=== PATIENT | female | born 1960 | race Caucasian/White ===

== ENCOUNTER 2016-05-30 08:38 | Day surgery (SDC) | payer OTHER ==
[2016-05-28 11:51] VITALS: BMI 34.0
[2016-05-30] MEDS ORDERED: PROPOFOL 20 ML ONE (10:02)
[2016-05-30] MEDS ORDERED: LIDOCAINE HCL/PF 2% SDV 5ML VIAL ONE (10:02)
[2016-05-30] MEDS ORDERED: ROCURONIUM BROMIDE 50 MG/5 ML VIAL ONE (10:06)
[2016-05-30] MEDS ORDERED: MIDAZOLAM HCL 2 MG/2 ML SINGLE DOSE VIAL ONE (10:40)
[2016-05-30] MEDS ORDERED: THROMBIN (BOVINE) 5,000 UNIT VIAL TP ONE (10:42)
[2016-05-30] MEDS ORDERED: GELATIN, ABSORBABLE 100 EACH SPONGE TP ONE (10:42)
[2016-05-30] MEDS ORDERED: BUPIVACAINE HCL/PF 2.5 MG/ML - 30 ML VIAL IJ ONE (10:56)
[2016-05-30] MEDS ORDERED: BUPIVACAINE HCL/PF 0.5% (5MG/ML) 10 ML VIAL ONE (10:57)
[2016-05-30] MEDS ORDERED: PHENYLEPHRINE HCL 10 MG/1 ML SINGLE DOSE VIAL ONE (11:12)
[2016-05-30] MEDS ORDERED: ceFAZolin SODIUM 1 GM VIAL ONE (11:19)
[2016-05-30] MEDS ORDERED: PROMETHAZINE HCL 25 MG/1 ML VIAL IVPUSH PRN (11:22)
[2016-05-30] MEDS ORDERED: LIDOCAINE HCL 2% 100 MG/5 ML DISP.SYRIN ONE (11:22)
[2016-05-30] MEDS ORDERED: ONDANSETRON 4 MG/2 ML VIAL IVPUSH PRN (11:22)
[2016-05-30] MEDS ORDERED: oxyCODONE HCL 5 MG TABLET PO PRN (11:22)
[2016-05-30] MEDS ORDERED: LACTATED RINGERS SOLUTION 1,000 ML IV SCH (11:30)
[2016-05-30] MEDS ORDERED: ONDANSETRON 4 MG/2 ML VIAL ONE ×2 (11:46→12:58)
[2016-05-30] MEDS ORDERED: NEOSTIGMINE METHYLSULFATE 0.5 MG/ML - 10 ML MDV ONE (11:47)
[2016-05-30] MEDS ORDERED: GLYCOPYRROLATE 0.2 MG/1 ML VIAL ONE ×2 (11:47→11:48)
[2016-05-30] MEDS ORDERED: DEXAMETHASONE SOD PHOSPHATE 4 MG/1 ML VIAL ONE (12:58)
[2016-05-30] MEDS ORDERED: BUPIVACAINE HCL/PF 0.25% (2.5MG/ML) 10 ML VIAL IJ ONE (13:08)
[2016-05-30] MEDS ORDERED: HYDROmorphone HCL CARPU-JECT 1 MG/1 ML DISP.SYRIN IVPB PRN (13:28)
[2016-05-30] MEDS ORDERED: OXYCODONE/APAP 5/325MG COMBO TABLET PO PRN (13:28)
[2016-05-30] MEDS ORDERED: ONDANSETRON 4 MG/2 ML VIAL IVPB PRN (13:30)
--- NOTE | 2016-05-30 13:36 | OP ---
Operative Note - Note: Operative Date: 05/30/16 Pre-Operative Diagnosis: Grave Disease Operation: Total thyroidectomy Post-Operative Diagnosis: Same as Pre-op Surgeon: Marvin Bar Director Of Group Counseling Program: Kristen Cruz Anesthesiologist/LABEL PASTER: Karsten Garcia Anesthesia: General Specimens Removed: total thyroid Estimated Blood Loss (mls): 150 Drains & Tubes with Location: JOSE- anterior neck Fluid Volume Replaced (mls): 1,400 Operative Report Dictated: Yes
[2016-05-30] MEDS ORDERED: SODIUM CHLORIDE 1,000 ML IV SCH (13:45)
[2016-05-30 19:39] LABS: ALBUMIN 3.1 g/dl (3.5-5.0); ALK PHOS 167 U/L (32-92); ANION GAP 8 (8-16); BILIRUBIN,TOTAL 0.5 mg/dl (0.2-1.0); CALCIUM 8.6 mg/dl (8.4-10.2); CO2 24 mmol/L (22-28); CREATININE 0.5 mg/dl (0.6-1.3); GLUCOSE,RANDOM 201 mg/dl (74-106); SGOT/AST 23 U/L (10-42); SGPT/ALT 12 U/L (10-40); TOT PROT 6.7 g/dl (6.4-8.3)
[2016-05-31 06:29] VITALS: BP 137/64; PULSE 92; TEMP 97.7
[2016-05-31] MEDS ORDERED: LEVOTHYROXINE NA 125 MCG TABLET (FP) PO SCH (07:00)
--- NOTE | 2016-05-31 08:13 | OP ---
DATE OF OPERATION: 05/30/2016 PREOPERATIVE DIAGNOSIS: Graves disease, inability to take oral medication. PROCEDURE: Total thyroidectomy. SURGEON: Gomez Bar MD [employer]ES MANAGER: RAYMUNDO Corrigan ANESTHESIA: General endotracheal intubation. Patient is a 55-year-old admitted with inability to take thyroid medications because of allergic to the medication for hypothyroidism. Various risks and benefits were explained to the patient. The patient was brought to the operating room and intravenous antibiotic was given. General endotracheal tube was administered and the neck was extended. After the timeout, the neck incision was made to identify the platysma muscle which was opened and the midline was identified and it was opened to identify the strap muscles and lateral dissection was done initially on to the left side and to the right side. The thyroid gland was then dissected away from the strap muscles and superiorly the superior thyroid gland entire vessels were identified and thyroid gland was taken right next to the, right on the gland to avoid injury to the superior laryngeal nerve. The medial rotation of the gland was done and the middle thyroid vein was identified and suture ligated with 3-0 silk. The inferior thyroid gland was identified and rotated medially and again care was taken to avoid injury to the recurrent laryngeal nerve which was not even identified and dissection was done much away from the thyroid capsule to avoid damage to the recurrent laryngeal nerve bilaterally. Once the left side was done once it was taken across the tracheal cartilages, a similar procedure was done on the right side. On the right side, the superior gland was found to be much tighter, much larger, and a lot of adhesions. Again, care was taken to avoid injury to the superior laryngeal nerve and the recurrent laryngeal nerve. Once it was accomplished, the thyroid gland was removed and a -Witt was introduced, brought through the wound. Platysma and the skin were closed and patient went to the recovery room in stable condition extubated with a normal voice. GOMEZ BAR M.D. [id number]
[2016-05-31 09:15] LABS: ALBUMIN 3.1 g/dl (3.5-5.0); ALK PHOS 152 U/L (32-92); ANION GAP 6 (8-16); BILIRUBIN,TOTAL 0.6 mg/dl (0.2-1.0); CALCIUM 8.6 mg/dl (8.4-10.2); CO2 29 mmol/L (22-28); CREATININE 0.4 mg/dl (0.6-1.3); GLUCOSE,RANDOM 114 mg/dl (74-106); SGOT/AST 21 U/L (10-42); SGPT/ALT 10 U/L (10-40); TOT PROT 6.5 g/dl (6.4-8.3)
[2016-05-31] MEDS ORDERED: LISINOPRIL 20 MG TABLET (FP) PO SCH (10:00)
[2016-05-31] MEDS ORDERED: PATIENT'S OWN MEDICATION (NON-FORMULARY) (Lisinopril/Hydrochlorothiazide [Lisinopril-Hctz PO SCH (10:00)
[2016-05-31] MEDS ORDERED: HYDROCHLOROTHIAZIDE 12.5 MG CAPSULE (FP) PO SCH (10:00)
--- NOTE | 2016-05-31 10:48 | PN ---
Progress Note (short form) - Note Progress Note: Alcohol Still Operator used. Reports hoarseness in voice and pain. Pain well relieved with oral medication. Reports abdominal bloating. Has not had a BM today. History of constipation. Denies perioral numbness/tingling and in the extremities. Denies CP/SOB and difficulty swallowing. General: calm and cooperative, NAD Neck: incision c/d/i with richelle, JOSE in place w/ 10cc of serosanguinous drainage, no hematoma Heart: RRR Lungs: CTA Abdomen: softly distended, non-tender One day s/p total thyroidectomy. Calcium level wnl. JOSE removed. Stool softeners/laxatives PRN. Pain management. Discharge today. F/U with endocrinology within 3 days. F/U with surgery within one week.
--- NOTE | 2016-06-03 13:25 | PATH ---
Surgical Pathology Report Patient Name: CAROLYN HAUSER [facility]. Rec. #: [id number] /Age/Gender: 1960 (Age: 55) / F Account: [id number] Location: [facility], [facility]–1983 AMBULATORY Taken: 05/30/2016 Received: 05/30/2016 Reported: 06/03/2016 Physicians: Marvin Bar M.D. Specimen(s) Received TOTAL THYROID GLAND Clinical History Graves' disease Final Diagnosis THYROID, TOTAL THYROIDECTOMY: BENIGN MULTINODULAR GOITER, 81 GRAMS, WITH MULTIPLE HYPERPLASTIC NODULES. ONE BENIGN PARATHYROID GLAND AND ONE BENIGN LYMPH NODE PRESENT. Electronically Signed Say Enamorado M.D. Gross Description Received in formalin labeled "total thyroid gland," is an 81 g total thyroidectomy specimen. The left lobe measures 7.0 x 3.0 x 2.5 cm, the right lobe measures 6.5 x 3.5 x 2.1 cm and the isthmus measures 3.3 x 2.0 x 1.5 cm. The outer capsule is red-brown and intact. The right lobe is inked red, the left lobe is inked black and the isthmus is inked green. Sectioning reveals multifocal michaud nodules. The inferior pole of the right lobe displays an area of pale michaud parenchyma. The remaining thyroid parenchyma is red-brown and beefy. Hand Packager sections are submitted in 19 cassettes as follows: 0-3-[id number] left lobe sequentially submitted from superior to inferior; 9-59-[id number] isthmus sequentially submitted from left to right; 34-04-[id number] right lobe sequentially submitted from superior to inferior (area of pale parenchyma in cassettes 17-19). /05/31/2016 [facility]05/31/2016
== END 2016-05-31 13:51 | disposition home or self-care (01) ==
LOC: FASU 08:38 → FM/S 15:34 → FASU 05-31 13:51
PROVIDERS: ATTEND Surgery Vascular Surgery
PROC: 0GTK0ZZ Resection of Thyroid Gland, Open Approach (ICD-10-PCS; principal; 2016-05-30 11:20)
DX: E05.00 Thyrotoxicosis with diffuse goiter without thyrotoxic crisis or storm (principal); R13.19 Other dysphagia
CPT/HCPCS: 36415; 80053; 84703; 88307-TC; 94760